=== PATIENT | female | born 1980 | race Caucasian/White ===

== ENCOUNTER 2017-06-11 03:27 | Emergency (ER) | payer SELFPAY ==
[~2017-06-11] VITALS: Ht 172.7 cm; Wt 67.0 kg
[2017-06-11 04:58] LABS: HCG UR OBC PASS
[2017-06-11 05:22] VITALS: BP 116/70
== END 2017-06-11 05:24 | disposition home or self-care (01) ==
LOC: ED 04:33
DX: R55 Syncope and collapse (principal); A59.01 Trichomonal vulvovaginitis
CPT/HCPCS: 70450; 81001; 81025; 87086; 87210; 87491; 87591; 87808; 93005; 99285

== ENCOUNTER 2017-08-08 09:31 | Emergency (ER) | payer MEDICAID ==
[~2017-08-08] VITALS: Ht 172.7 cm; Wt 61.6 kg
[2017-08-08 09:33] VITALS: BP 159/102
[2017-08-08] MEDS ORDERED: LIDOCAINE 1%, 20ML ONE (10:01)
[2017-08-08] MEDS ORDERED: LIDOCAINE 1%, 10ML INFIL ONE (10:30)
== END 2017-08-08 10:32 | disposition home or self-care (01) ==
LOC: ED 10:15
DX: L02.413 Cutaneous abscess of right upper limb (principal); F11.10 Opioid abuse, uncomplicated; F17.200 Nicotine dependence, unspecified, uncomplicated
CPT/HCPCS: 10060

== ENCOUNTER 2017-11-10 06:06 | Emergency (ER) | payer MEDICAID ==
[~2017-11-10] VITALS: Ht 172.7 cm; Wt 67.0 kg
[2017-11-10] MEDS ORDERED: PROPARACAINE OPHTH 0.5%, 15ML ONE (06:16)
[2017-11-10] MEDS ORDERED: FLUORESCEIN OPHTHALMIC 1 MG STRIP ONE (06:16)
[2017-11-10 07:03] VITALS: BP 138/85
== END 2017-11-10 07:06 | disposition home or self-care (01) ==
LOC: ED 07:05
DX: H10.022 Other mucopurulent conjunctivitis, left eye (principal); F17.210 Nicotine dependence, cigarettes, uncomplicated
CPT/HCPCS: 99283

== ENCOUNTER 2018-01-16 18:30 | Emergency (ER) | payer MEDICAID ==
[~2018-01-16] VITALS: Ht 172.7 cm; Wt 66.5 kg
[2018-01-16 18:31] VITALS: BP 158/98
== END 2018-01-16 19:41 | disposition left against medical advice (07) ==
LOC: ED 19:00
DX: R07.9 Chest pain, unspecified (principal); F41.9 Anxiety disorder, unspecified; Z53.21 Procedure and treatment not carried out due to patient leaving prior to being seen by health care provider
CPT/HCPCS: 93005

== ENCOUNTER 2018-03-03 14:16 | Emergency (ER) | payer MEDICAID ==
[~2018-03-03] VITALS: Ht 172.7 cm; Wt 68.0 kg
[2018-03-03] MEDS ORDERED: LORazepam 1MG TABLET PO ONE (15:00)
[2018-03-03] MEDS ORDERED: LORazepam 1MG TABLET ONE (15:01)
[2018-03-03 16:14] VITALS: BP 129/71
== END 2018-03-03 16:18 | disposition home or self-care (01) ==
LOC: ED 16:04
DX: R55 Syncope and collapse (principal); F11.23 Opioid dependence with withdrawal; Z00.00 Encounter for general adult medical examination without abnormal findings
CPT/HCPCS: 93005; 99283

== ENCOUNTER 2018-04-19 14:11 | Emergency (ER) | payer MEDICAID ==
[~2018-04-19] VITALS: Ht 172.7 cm; Wt 64.7 kg
[2018-04-19] MEDS ORDERED: FLUORESCEIN OPHTHALMIC 1 MG STRIP EACHEYE ONE (14:30)
[2018-04-19] MEDS ORDERED: PROPARACAINE OPHTH 0.5%, 15ML EACHEYE ONE (14:30)
[2018-04-19 14:50] LABS: BASOPHILS # (AUTO) 0.02 x10^3/uL (0-0.1); BASOPHILS % (AUTO) 0 % (0-1); EOSINOPHILS # (AUTO) 0.06 x10^3/uL (0-0.4); EOSINOPHILS % (AUTO) 1 % (1-7); LYMPHOCYTES # (AUTO) 1.13 x10^3/uL (1-3.4); LYMPHOCYTES % (AUTO) 26 % (22-44); MD NO; MEAN CORPUSCULAR HEMOGLOBIN 22.7 pg (27.0-34.8); MEAN CORPUSCULAR HGB CONC 31.6 g/dL (32.4-35.8); MEAN CORPUSCULAR VOLUME 71.7 fL (80-100); MEAN PLATELET VOLUME 7.3 fL (7.4-10.4); MONOCYTES # (AUTO) 0.23 x10^3/uL (0.2-0.8); MONOCYTES % (AUTO) 5 % (2-9); NEUTROPHILS # (AUTO) 2.92 x10^3/uL (1.8-6.8); NEUTROPHILS % (AUTO) 67 % (42-75); PLATELET COUNT 250 x10^3/uL (130-400); RED BLOOD COUNT 4.47 x10^6/uL (3.82-5.3); RED CELL DISTRIBUTION WIDTH 16.9 % (9.6-15.2)
[2018-04-19 15:02] LABS: ALBUMIN 3.4 g/dL (3.4-5.0); ANION GAP 6 mmol/L (5-15); CALCIUM 8.9 mg/dL (8.5-10.1); CHLORIDE 106 mmol/L (98-107); CREATININE 0.81 mg/dL (0.55-1.02)
[2018-04-19] MEDS ORDERED: FLUORESCEIN/BENOXINATE 5 ML DROPS OP ONE (17:00)
[2018-04-19 17:03] LABS: HCG UR SG 1.031 (1.003-1.030)
[2018-04-19 17:06] LABS: CULTURE INDICATED? YES; MICROSCOPIC INDICATED
[2018-04-19] MEDS ORDERED: AZITHROMYCIN 500 MG TABLET PO ONE (17:30)
[2018-04-19] MEDS ORDERED: CEFTRIAXONE 250 MG IM ONE (17:30)
[2018-04-19 17:41] LABS: CLUE CELLS NONE SEEN (NONE SEEN); WET PREP WBCS NONE SEEN (FEW)
[2018-04-19] MEDS ORDERED: AZITHROMYCIN 500 MG TABLET ONE (17:52)
[2018-04-19] MEDS ORDERED: CEFTRIAXONE 250 MG ONE (17:52)
[2018-04-19] MEDS ORDERED: LIDOCAINE-MPF 1%, 2ML ONE (17:55)
[2018-04-19 18:06] VITALS: BP 135/81
== END 2018-04-19 18:13 | disposition home or self-care (01) ==
LOC: ED 18:07
DX: N30.00 Acute cystitis without hematuria (principal); H18.822 Corneal disorder due to contact lens, left eye; N89.8 Other specified noninflammatory disorders of vagina; F17.200 Nicotine dependence, unspecified, uncomplicated
CPT/HCPCS: 36415; 80048; 81001; 81025; 82040; 85025; 87077; 87086; 87186; 87210; 87491; 87591; 87808; 96372; 99284; J0696

== ENCOUNTER 2018-05-19 14:07 | Emergency (ER) | payer MEDICAID ==
[~2018-05-19] VITALS: Ht 172.7 cm; Wt 61.4 kg
[2018-05-19 15:39] LABS: MEAN CORPUSCULAR HEMOGLOBIN 21.7 pg (27.0-34.8); MEAN CORPUSCULAR HGB CONC 30.9 g/dL (32.4-35.8); MEAN CORPUSCULAR VOLUME 70.2 fL (80-100); PLATELET COUNT 219 x10^3/uL (130-400); RED BLOOD COUNT 4.95 x10^6/uL (3.82-5.3)
[2018-05-19 15:46] LABS: ALBUMIN 3.7 g/dL (3.4-5.0); ANION GAP 6 mmol/L (5-15); CALCIUM 9.3 mg/dL (8.5-10.1); CHLORIDE 105 mmol/L (98-107); CREATININE 0.75 mg/dL (0.55-1.02)
[2018-05-19 16:06] LABS: BASOPHILS # (AUTO) 0.02 x10^3/uL (0-0.1); BASOPHILS % (AUTO) 1 % (0-1); EOSINOPHILS # (AUTO) 0.06 x10^3/uL (0-0.4); EOSINOPHILS % (AUTO) 2 % (1-7); LYMPHOCYTES # (AUTO) 1.24 x10^3/uL (1-3.4); LYMPHOCYTES % (AUTO) 43 % (22-44); MD MORPH REVIEW ONLY; MONOCYTES # (AUTO) 0.22 x10^3/uL (0.2-0.8); MONOCYTES % (AUTO) 8 % (2-9); NEUTROPHILS # (AUTO) 1.31 x10^3/uL (1.8-6.8); NEUTROPHILS % (AUTO) 46 % (42-75)
[2018-05-19 16:10] LABS: <PLATELET ESTIMATE> ADEQUATE; <PLT MORPHOLOGY> NORMAL PLT MORPH; ANISOCYTOSIS 1+; HYPOCHROMIA 1+; POLYCHROMASIA 1+; TOXIC GRAN 1+
[2018-05-19 16:22] LABS: CULTURE INDICATED? YES; MICROSCOPIC INDICATED
[2018-05-19 16:51] VITALS: BP 136/88
== END 2018-05-19 16:55 | disposition home or self-care (01) ==
LOC: ED 16:49
DX: N39.0 Urinary tract infection, site not specified (principal); F17.200 Nicotine dependence, unspecified, uncomplicated
CPT/HCPCS: 36415; 80048; 81001; 82040; 84703; 85025; 87086; 99284

== ENCOUNTER 2018-09-18 21:22 | Emergency (ER) | payer MEDICAID ==
[~2018-09-18] VITALS: Ht 172.7 cm; Wt 65.6 kg
[2018-09-18 21:37] VITALS: BP 136/84
== END 2018-09-18 22:29 | disposition home or self-care (01) ==
LOC: ED 22:00
DX: L02.01 Cutaneous abscess of face (principal); K13.0 Diseases of lips
CPT/HCPCS: 99283

== ENCOUNTER 2018-09-20 03:59 | Emergency (ER) | payer MEDICAID ==
[~2018-09-20] VITALS: Ht 172.7 cm; Wt 58.8 kg
[2018-09-20 04:01] VITALS: BP 138/93
[2018-09-20] MEDS ORDERED: LIDOCAINE-MPF 1%, 5ML ONE (04:29)
[2018-09-20] MEDS ORDERED: LIDOCAINE 1%, 10ML INFIL ONE (04:30)
[2018-09-20] MEDS ORDERED: IBUPROFEN 200 MG TABLET ONE (04:51)
[2018-09-20] MEDS ORDERED: IBUPROFEN 200 MG TABLET PO ONE (05:00)
== END 2018-09-20 05:11 | disposition home or self-care (01) ==
LOC: ED 04:57
DX: K13.0 Diseases of lips (principal); L02.01 Cutaneous abscess of face
CPT/HCPCS: 10060; 99283

== ENCOUNTER 2019-12-17 22:37 | Emergency (ER) | payer MEDICAID ==
[~2019-12-17] VITALS: Ht 172.7 cm; Wt 68.5 kg
[2019-12-17 22:40] VITALS: BP 154/93
[2019-12-17] MEDS ORDERED: ONDANSETRON ODT 4 MG PO ONE (23:00)
[2019-12-17 23:17] LABS: BASOPHILS % (AUTO) 0 % (0-1); EOSINOPHILS # (AUTO) 0.09 x10^3/uL (0-0.4); EOSINOPHILS % (AUTO) 2 % (1-7); LYMPHOCYTES # (AUTO) 1.72 x10^3/uL (1-3.4); LYMPHOCYTES % (AUTO) 33 % (22-44); MD NO; MEAN CORPUSCULAR HEMOGLOBIN 23.3 pg (27.0-34.8); MEAN CORPUSCULAR HGB CONC 31.3 g/dL (32.4-35.8); MEAN CORPUSCULAR VOLUME 74.5 fL (80-100); MEAN PLATELET VOLUME 7.7 fL (7.4-10.4); MONOCYTES # (AUTO) 0.46 x10^3/uL (0.2-0.8); MONOCYTES % (AUTO) 9 % (2-9); NEUTROPHILS # (AUTO) 3.02 x10^3/uL (1.8-6.8); NEUTROPHILS % (AUTO) 57 % (42-75); PLATELET COUNT 238 x10^3/uL (130-400); RED BLOOD COUNT 4.33 x10^6/uL (3.82-5.3); RED CELL DISTRIBUTION WIDTH 16.6 % (9.6-15.2)
[2019-12-17 23:29] LABS: ALANINE AMINOTRANSFERASE 41 U/L (12-78); ALBUMIN 3.7 g/dL (3.4-5.0); ANION GAP 7 mmol/L (5-15); CALCIUM 8.8 mg/dL (8.5-10.1); CHLORIDE 105 mmol/L (98-107); CREATININE 0.84 mg/dL (0.55-1.02)
[2019-12-17 23:34] LABS: ALKALINE PHOSPHATASE 65 U/L (45-117); BILIRUBIN,TOTAL 0.5 mg/dL (0.2-1.0)
[2019-12-17 23:43] LABS: RAPID INFLUENZA A Negative (Negative); RAPID INFLUENZA B Negative (Negative)
--- NOTE | 2019-12-18 00:16 | NUR ---
TASK RN: PT DENIES NEED FOR NAUSEA MEDICATIONS. DC EDUCATION PROVIDED, PT DEMONSTRATES UNDERSTANDING. PT AMBULATED STEADILY TO DC WITH RN AND SO
== END 2019-12-18 00:18 | disposition home or self-care (01) ==
LOC: ED 22:58
DX: R11.2 Nausea with vomiting, unspecified (principal); R10.84 Generalized abdominal pain; R51 Headache; M79.10 Myalgia, unspecified site; F17.200 Nicotine dependence, unspecified, uncomplicated
CPT/HCPCS: 36415; 80053; 84443; 84703; 85025; 87400; 99283

== ENCOUNTER 2020-10-20 14:08 | Emergency (ER) | payer MEDICAID ==
[~2020-10-20] VITALS: Ht 172.7 cm; Wt 68.0 kg
[2020-10-20 14:13] VITALS: BP 156/103
--- NOTE | 2020-10-24 15:01 | NUR ---
THROUGHPUT RN: PT CAME TO ER REQUESTING COPY OF +COVID RESULTS FOR WORK. COMPLETED MEDICAL INFO RELEASE FORM AND PT SIGNED RELEASE. PROVIDED COPY OF RESULTS. DISCUSSED AGAIN WITH PT THE IMPORTANCE OF ISOLATING DUE TO HER + RESULTS. VERBALIZED UNDERSTANDING.
== END 2020-10-20 16:43 | disposition home or self-care (01) ==
LOC: ED 16:29
DX: U07.1 COVID-19 (principal); B34.9 Viral infection, unspecified; I48.91 Unspecified atrial fibrillation; I51.7 Cardiomegaly; R94.31 Abnormal electrocardiogram [ECG] [EKG]; R07.9 Chest pain, unspecified; F17.200 Nicotine dependence, unspecified, uncomplicated
CPT/HCPCS: 71045; 87635; 93005; 99285

== ENCOUNTER 2021-03-09 12:15 | Emergency (ER) | payer MEDICAID ==
[~2021-03-09] VITALS: Ht 172.7 cm; Wt 71.0 kg
[2021-03-09 12:22] VITALS: BP 151/102
--- NOTE | 2021-03-09 12:54 | NUR ---
med monique from pharm as
[2021-03-09] MEDS ORDERED: BICILLIN-LA 2,400,000 UNITS/4 ML IM ONE (13:00)
[2021-03-09] MEDS ORDERED: LIDOCAINE 1%, 10ML INFIL ONE (13:30)
[2021-03-09] MEDS ORDERED: LIDOCAINE-MPF 1%, 2ML ONE (14:06)
== END 2021-03-09 14:35 | disposition home or self-care (01) ==
LOC: ED 12:49
DX: L02.413 Cutaneous abscess of right upper limb (principal); Z20.2 Contact with and (suspected) exposure to infections with a predominantly sexual mode of transmission
CPT/HCPCS: 10060; 96372; 99283; J0561